=== PATIENT | female | born 1960 | race African-American/Black ===

== ENCOUNTER 2023-03-01 17:00 | Outpatient (CLI) | payer OTHER | END 2023-03-01 17:01 | disposition home or self-care (01) | LOC: SLEEPLAB 17:00 | PROVIDERS: ATTEND Nurse Practitioner Family | DX: G47.33 Obstructive sleep apnea (adult) (pediatric) (principal); R53.83 Other fatigue; R51.9 Headache, unspecified; F32.A Depression, unspecified; K21.9 Gastro-esophageal reflux disease without esophagitis; E66.9 Obesity, unspecified; F41.9 Anxiety disorder, unspecified; G47.10 Hypersomnia, unspecified; R06.83 Snoring; R35.1 Nocturia; I10 Essential (primary) hypertension; G47.00 Insomnia, unspecified; Z68.23 Body mass index [BMI] 23.0-23.9, adult | CPT/HCPCS: 95810 ==

== ENCOUNTER 2024-05-28 02:36 | Emergency (ER) | payer OTHER | END 2024-05-28 04:00 | disposition left against medical advice (07) | LOC: ERS 02:36 | DX: R07.2 Precordial pain (principal); F17.210 Nicotine dependence, cigarettes, uncomplicated | CPT/HCPCS: 71045; 93005 ==